=== PATIENT | male | born 1990 | race Caucasian/White ===

== ENCOUNTER 2020-08-07 02:35 | Emergency (ER) | payer BC, SELFPAY ==
[2020-08-07] VITALS (8 sets, daily range): BP systolic 126–152; BP diastolic 33–114; PULSE 15–81; RESP 16–20; TEMP 36.4; O2SAT 92–99; BMI 32.1
--- NOTE | 2020-08-07 03:17 | RAD_ITS ---
STUDY: X-RAY - LEFT SHOULDER REASON FOR EXAM: Male, 29 years old. shoulder pain TECHNIQUE: 2 view(s) of the shoulder. COMPARISON: 12/11/2016. FINDINGS: There is anterior dislocation of the glenohumeral joint. Normal acromioclavicular joint. Normal acromion. There is a small Hill-Sachs deformity which is chronic. The soft tissue structures are unremarkable. Normal visualized pulmonary apex. RAD/Shoulder min 2 Views IMPRESSION: Anterior shoulder dislocation. Small chronic Hill-Sachs deformity. No other visualized fracture. Electronically Signed: Yonas Landis MD at 3:55 EST , Service support ,
[2020-08-07] MEDS: Ondansetron 4 MG/2 ML Vial IV (03:26)
[2020-08-07] MEDS: Morphine 4 MG/ML Syringe IV (03:26)
--- NOTE | 2020-08-07 04:23 | ED.DCSUM_ITS ---
History of Present Illness Chief Complaint: Upper Extremity Injury Informant: Patient Narrative: 29-year-old male with history of shoulder dislocation presenting with a left shoulder dislocation. He states he has had this shoulder previously worked on however it has failed. Patient states he had his arm over his head while sleeping and it dislocated. He has a little bit of paresthesia in his left arm. He denies any direct trauma. Past Medical History - Allergies and Home Meds Allergies/Adverse Reactions: Allergies No Known Allergies Allergy (Verified 08/07/20 02:40) Primary Care Physician: Winsome Guzman DO [STAFF PHYSICIAN] - Care Physician,No Primary [Primary Care Provider] - Prior records reviewed: Yes Past Medical History: - - History of shoulder dislocation Surgical History: noncontributory Lives: Spouse/ Significant Other Smoking Status: Never smoker Alcohol: None Drugs: None Review of Systems General: Denies: Chills, Fever, Sweats Eyes: Denies: Visual changes - bilaterally, Diplopia ENT: Denies: Rhinorrhea, Sore throat Cardiovascular: Denies: Chest pain, Palpitations Respiratory: Denies: Dyspnea, Cough, Dyspnea on exertion Gastrointestinal: Denies: Abdominal pain, Nausea, Vomiting, Diarrhea, Melena, He matochezia Genitourinary: Denies: Dysuria, Hematuria, Frequency Musculoskeletal: Reports: Extremity Pain - Left shoulder pain Skin: Denies: Rash, Abscess Neurological: Reports: Parasthesia - Left shoulder and forearm Psych: Denies: Depression, Anxiety Physical Exam Vital Signs/Narrative: Vital Signs Temp Pulse Resp BP Pulse Ox 08/07/20 02:37 97.5 F L 81 16 152/79 H 98 Inital Vital Signs reviewed: Yes General: Well nourished, No Acute Distress Head: Normocephalic, Atraumatic Eyes: Perrl, EOMI Cardiovascular: Regular rate, Regular rhythm Respiratory: No distress Extremities: Tenderness - Is to palpation of the left shoulder limited range of motion. Obvious deformity. Diminished sensation over the deltoid Skin: Normal color, No rash Neurological: Alert, Oriented x3 Psychological: Normal affect, Normal Mood Diagnostic/Tx/Re-eval Clinical Impression(s) from Imaging Studies Shoulder X-Ray 08/07/20 03:17 IMPRESSION: Anterior shoulder dislocation. Small chronic Hill-Sachs deformity. No other visualized fracture. Electronically Signed: Yonas Landis MD at 3:55 EST , Service support , Shoulder X-Ray 08/07/20 04:58 IMPRESSION: Successful reduction of previously demonstrated anterior shoulder dislocation. Small chronic Hill-Sachs deformity. No demonstrated acute fracture. Electronically Signed: Yonas Landis MD at 5:44 EST , Service support , - Medical Decision Making 29-year-old male with left shoulder dislocation. IV was established he was given morphine and Zofran. Patient had left shoulder x-ray 2 views which show anterior dislocation with Hill-Sachs deformity as interpreted myself and radiology does agree. Patient was sedated with propofol prior to 100 mg. Once patient was sedated I tried to sit him up in the bed to reduce the shoulder and it came back into place. Patient was placed in a sling and swath. Repeat x-ray shows dislocation is improved however there is still Adebayo-Sachs deformity as interpreted by myself and radiology does agree. Patient will be discharged home in stable condition. Impression: 1. Left shoulder dislocation 2. Hill-Sachs deformity ED Disposition - Plan for ED Patient: Disposition: Home or Assisted Living Instructions: ED Dislocation: Shoulder (Reduced) Referrals: Care Physician,No Primary [Primary Care Provider] - Winsome Guzman DO [STAFF PHYSICIAN] -
[2020-08-07] MEDS: Propofol 200 MG/20 ML Vial 100 MG IV BOLUS (04:53)
--- NOTE | 2020-08-07 04:58 | RAD_ITS ---
STUDY: X-RAY - LEFT SHOULDER REASON FOR EXAM: Male, 29 years old. shoulder dislocation TECHNIQUE: 2 view(s) of the shoulder. This exam was done at 0510 hours COMPARISON: Exam done today at 0324 hours. Exam done on 12/10/2016 FINDINGS: Normal glenohumeral articulation. Normal acromioclavicular joint. Normal acromion. There is a small chronic pleural sac deformity. Otherwise normal humeral head and visualized proximal humerus. The soft tissue structures are unremarkable. Normal visualized pulmonary apex. RAD/Shoulder min 2 Views IMPRESSION: Successful reduction of previously demonstrated anterior shoulder dislocation. Small chronic Hill-Sachs deformity. No demonstrated acute fracture. Electronically Signed: Yonas Landis MD at 5:44 EST , Service support ,
== END 2020-08-07 06:15 | disposition home or self-care (01) ==
PROVIDERS: Emergency Provider Student in an Organized Health Care Education/Training Program
DX: S43.005A Unspecified dislocation of left shoulder joint, initial encounter (principal); X50.9XXA Other and unspecified overexertion or strenuous movements or postures, initial encounter; Y93.9 Activity, unspecified; Y92.89 Other specified places as the place of occurrence of the external cause; Y99.9 Unspecified external cause status; M21.822 Other specified acquired deformities of left upper arm
CPT/HCPCS: 73030; 96374; 96375; 99283; J7030; A4216; J2405

== ENCOUNTER 2020-09-24 07:55 | Outpatient (RCR) | payer BC, SELFPAY ==
[2020-08-14 15:11] VITALS: BMI 30.4
[2020-09-24] MEDS: COVID-19 VACC, MRNA(PFIZER)/PF 30 MCG/0.3 ML SYRINGE IM (13:07)
[2020-10-15] MEDS: COVID-19 VACC, MRNA(PFIZER)/PF 30 MCG/0.3 ML SYRINGE IM (12:30)
== END 2020-11-11 23:59 ==
LOC: IMMUN 07:55
PROVIDERS: Referring Provider Family Medicine; Visit Provider Family Medicine
DX: Z23 Encounter for immunization (principal)
CPT/HCPCS: 0001A; 0002A; 91300

== ENCOUNTER 2021-07-13 15:02 | Outpatient (CLI) | payer BC, SELFPAY | END 2021-07-13 23:59 | disposition home or self-care (01) | LOC: IMMUN 07-14 15:02 | PROVIDERS: Referring Provider Family Medicine; Visit Provider Family Medicine | DX: Z23 Encounter for immunization (principal) ==